=== PATIENT | female | born 1950 | race Caucasian/White ===

== ENCOUNTER → 2016-10-16 | Day surgery (SDC) | payer OTHER ==
[~2016-10-16] VITALS: Ht 165.1 cm; Wt 77.1 kg
[2016-10-16] VITALS (9 sets, daily range): BP systolic 108–134; BP diastolic 63–80
[~2016-10-16] MED LIST: ALDACTONE50 MG PO; ATIVAN0.5 M1 PO; CELEXA20 MG PO; COLACE100 MG PO; DEPAKOTE ER250 M1 PO; LASIX40 MG PO; NOR10 PO; NORCO1 TA2 PO; PRILOSEC20 MG PO; TRAZODONE100 MG PO
[2016-10-16 10:41] LABS: CALCIUM 8.2 mg/dL (8.5-10.1); CARBON DIOXIDE 29.9 mmol/L (21-32); POTASSIUM SERUM 4.2 mmol/L (3.5-5.1)
[2016-10-16 10:45] LABS: PLATELET COUNT 191 x10^3mcL (130-400)
[2016-10-16 10:46] LABS: RED CELL DISTRIBUTION WIDTH 17.6 % (11.5-14.5)
[2016-10-16 11:23] LABS: BAND NEUTROPHIL 2 % (0-10); BASOPHIL 0 % (0-2); MONOCYTE 9 % (0-7); SEGMENTED NEUTROPHILS 75 % (37-75)
[2016-10-16 11:24] LABS: PLATELET MORPHOLOGY PLATELETS NORMAL; ovalocyte/elliptocyte 1+; rbc morphology (normal/abnorm) ABNORMAL (NORMAL)
== END ==
LOC: DS 09:36 → US 11:00
PROVIDERS: Family Medicine
PROC: 0W9G3ZZ Drainage of Peritoneal Cavity, Percutaneous Approach (ICD-10-PCS; principal; 2016-10-16)
DX: K70.31 Alcoholic cirrhosis of liver with ascites (principal); F10.20 Alcohol dependence, uncomplicated; N17.0 Acute kidney failure with tubular necrosis; E87.1 Hypo-osmolality and hyponatremia; I50.9 Heart failure, unspecified; D63.8 Anemia in other chronic diseases classified elsewhere
CPT/HCPCS: Q0092

== ENCOUNTER 2016-12-11 09:15 | Inpatient (IN) | payer OTHER ==
[~2016-12-11] VITALS: Ht 162.6 cm; Wt 77.1 kg
[2016-12-11] VITALS (7 sets, daily range): BP systolic 125–159; BP diastolic 70–82
[2016-12-11 13:33] LABS: PLATELET COUNT 185 x10^3mcL (130-400)
[2016-12-11 13:34] LABS: RED CELL DISTRIBUTION WIDTH 18.4 % (11.5-14.5)
[2016-12-11 13:35] LABS: CALCIUM 8.3 mg/dL (8.5-10.1); CREATININE SERUM 1.7 mg/dL (0.6-1.0); POTASSIUM SERUM 3.7 mmol/L (3.5-5.1)
[2016-12-11 13:38] LABS: MAGNESIUM 1.8 mg/dL (1.8-2.4); PHOSPHOROUS 3.6 mg/dL (2.5-4.9)
[2016-12-11 14:08] LABS: BAND NEUTROPHIL 1 % (0-10); BASOPHIL 0 % (0-2); MONOCYTE 10 % (0-7); SEGMENTED NEUTROPHILS 86 % (37-75)
[2016-12-11 14:19] LABS: ovalocyte/elliptocyte 1+; rbc morphology (normal/abnorm) ABNORMAL (NORMAL)
[2016-12-11 14:20] LABS: PLATELET MORPHOLOGY PLATELETS DECREASED
[2016-12-11 14:25] LABS: BILIRUBIN DIRECT 0.28 mg/dL (0.0-0.2); BILIRUBIN TOTAL 0.57 mg/dL (0.20-1.00); TOTAL PROTEIN, SERUM 6.4 g/dL (6.4-8.2)
[2016-12-11 14:26] LABS: ALBUMIN 2.4 g/dL (3.4-5.0)
[2016-12-11 17:59] LABS: ALBUMIN 1.3 g/dL (3.4-5.0)
[2016-12-11 18:19] LABS: UA SPECIFIC GRAVITY <=1.005 (1.005-1.035); microscopic required? YES; urine erythrocyte 1+ (NEGATIVE)
[2016-12-11 19:02] LABS: APPEARANCE FLUID HAZY; COLOR FLUID YELLOW; SOURCE FLUID ASCITES
[2016-12-11 19:03] LABS: RBC FLUID 7 /cumm; WBC FLUID 45 /cumm
[2016-12-11 19:07] LABS: LYMPHOCYTE FLUID 5 %; MONOCYTE FLUID 92 %
[2016-12-12 06:16] LABS: BASOPHIL % 0.2 % (0-2); PLATELET COUNT 151 x10^3mcL (130-400)
[2016-12-12 06:20] VITALS: BP 107/63
[2016-12-12 06:36] LABS: CARBON DIOXIDE 28.1 mmol/L (21-32); CREATININE SERUM 1.7 mg/dL (0.6-1.0); MAGNESIUM 1.8 mg/dL (1.8-2.4); PHOSPHOROUS 3.6 mg/dL (2.5-4.9); POTASSIUM SERUM 3.9 mmol/L (3.5-5.1)
[2016-12-12 06:58] LABS: RED CELL DISTRIBUTION WIDTH 18.3 % (11.5-14.5)
[2016-12-12 09:15] VITALS: BP 126/78
[2016-12-12 12:36] VITALS: BP 116/76
[2016-12-12 15:08] VITALS: BP 116/76
[2016-12-12 16:35] VITALS: BP 114/62
== END 2016-12-12 21:05 | DRG 432 ==
LOC: DS 09:15 → DU 12:01 → MU 12:01 → DU 12:50 → MU 12:51
PROVIDERS: Family Medicine; ADMIT Family Medicine
PROC: 0W9G3ZZ Drainage of Peritoneal Cavity, Percutaneous Approach (ICD-10-PCS; principal; 2016-12-11)
DX: K70.31 Alcoholic cirrhosis of liver with ascites (principal); N17.0 Acute kidney failure with tubular necrosis; E43 Unspecified severe protein-calorie malnutrition; E87.1 Hypo-osmolality and hyponatremia; D61.818 Other pancytopenia; D64.9 Anemia, unspecified; F32.9 Major depressive disorder, single episode, unspecified; G62.9 Polyneuropathy, unspecified; Z68.29 Body mass index [BMI] 29.0-29.9, adult; Z98.51 Tubal ligation status; Z82.49 Family history of ischemic heart disease and other diseases of the circulatory system; Z83.3 Family history of diabetes mellitus; Z84.89 Family history of other specified conditions
CPT/HCPCS: 82947; J1170; J1956; J2270; Q0092

== ENCOUNTER → 2016-12-21 | Day surgery (SDC) | payer OTHER ==
[~2016-12-21] VITALS: Ht 162.6 cm; Wt 73.5 kg
[2016-12-21] VITALS (11 sets, daily range): BP systolic 102–131; BP diastolic 62–687
[2016-12-21 11:01] LABS: PLATELET COUNT 227 x10^3mcL (130-400)
[2016-12-21 11:07] LABS: RED CELL DISTRIBUTION WIDTH 17.8 % (11.5-14.5)
[2016-12-21 11:22] LABS: CALCIUM 8.1 mg/dL (8.5-10.1); CARBON DIOXIDE 28.3 mmol/L (21-32); CREATININE SERUM 1.4 mg/dL (0.6-1.0); POTASSIUM SERUM 4.5 mmol/L (3.5-5.1)
[2016-12-21 11:25] LABS: PHOSPHOROUS 3.4 mg/dL (2.5-4.9)
[2016-12-21 12:14] LABS: BAND NEUTROPHIL 2 % (0-10); BASOPHIL 0 % (0-2); MONOCYTE 15 % (0-7); SEGMENTED NEUTROPHILS 77 % (37-75)
[2016-12-21 12:15] LABS: PLATELET MORPHOLOGY PLATELETS NORMAL; ovalocyte/elliptocyte 1+; rbc morphology (normal/abnorm) ABNORMAL (NORMAL)
--- NOTE | 2016-12-21 12:35 | NUR ---
1235 PT AWAKE AND ALERT. PROCEDURE FINISHED AT THIS TIME. PT RESTING IN BED. VITAL SIGNS STABLE. NO COMPLAINTS OF ANY PAIN. 5 LITERS OF YELLOWISH LIQUID DRAINED FROM PERICENTESIS PROCEDURE. PLEUR X DRAIN PLACED. SUCCESSFUL INSERTION. PT REMAINS HOOKED UP TO MONITOR. 1300 PT SITTING UP IN GURNEY. PT HAVING LUNCH AT THIS TIME. NO COMPLAINTS OF ANY PAIN.
--- NOTE | 2016-12-21 13:30 | NUR ---
1330 PT COMPLAINING OF PAIN AT THIS TIME. PT RATED PAIN A 9 ON A SCALE OF 1-10. PT HAVING PAIN ALL OVER BUT MOSTLY IN ABDOMEN. PT BEING MEDICATED AND REPOSITIONED AT THIS TIME. PT REMAINS HOOKED UP TO THE MONITOR.
== END ==
LOC: DS 09:56
PROVIDERS: Family Medicine
PROC: 0W9G3ZZ Drainage of Peritoneal Cavity, Percutaneous Approach (ICD-10-PCS; principal; 2016-12-21)
PROC: BW40ZZZ Ultrasonography of Abdomen (ICD-10-PCS; 2016-12-21)
DX: K70.31 Alcoholic cirrhosis of liver with ascites (principal); G62.9 Polyneuropathy, unspecified; F32.9 Major depressive disorder, single episode, unspecified; Z51.5 Encounter for palliative care; Z66 Do not resuscitate
CPT/HCPCS: Q0092